=== PATIENT | female | born 1985 | race Caucasian/White ===

== ENCOUNTER → 2016-08-08 | Outpatient (RCR) ==
[2015-09-13 22:47] VITALS: BMI 23.0
--- NOTE | 2016-08-03 13:01 | RS.OPPTEV2 ---
Date of Note: 08/03/16 Visit #: 1 Date of Evaluation: 08/03/16 Payer Source: Medicaid Date of Onset/Injury/Change in Status: 06/11/15 Surgery Performed?: No Treatment Diagnosis: Neck and shoulder pain History of Condition/Mechanism of Injury:: Pt states she begain have bilateral shoulder pain and numbness 2 years ago. 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 She had a day that she shoveled asphalt all day for 2 wks and then she started having HAs and neck pain which was about 1.5 yrs ago. She took a leave of absence due to the pain she was having. She took off 06/08/2016 and will return to work ful time in August. She has been doing 2 days a wk only and states that the time off has not helped her condition. She was referred to pain management and is fearful of undergoing injections. Medical History Medical History: Hypertension, Arthritis Smoking Status: Current some day smoker Hx Home Medications: [place] 5, Bupropin XL, Naproxsyn, Tizinadine Pain Assessment - Pain Description Pain Location: Neck and shoulders mainly her occiput. Pain Description: Burning, Tightness Pain Description: Constant CRUZ to varying degrees Current Pain Intensity: 6/10 Worst Pain Intensity: 8/10 Functional Outcome Measure Neck Disability Index: 26 - G Codes & Severity Modifier G Codes & Modifier: NA Source of G Code score: NA Observation - Observation Posture: Forward Head, Rounded Shoulders General Muscle Strength: BUE strength is WNLs to testing. Minimal pain in AC joints with testing and in cervical spine. Pain reported only after testing was completed. - ROM Cervical Spine Range of Motion Limitations: Pain Comments: WFLs CROM in all planes but pain throughout the ROM - Strength Cervical Flexion: 4- Good- Shoulder ROM: Bilaterally WFL's Shoulder Muscle Strength: Bilaterally WFL's Palpation Palpation Findings: Tenderness (Neck and bilateral shoulder musculature. ), Trigger Point (Right levator scapulae), Muscle Guarding (Throughout the neck and shoulders bilaterally.) Sensation - Sensation Sensation Description: Heaviness (Throughout the UEs intermittently.) Interventions - Exercise/Activities/Manual Therapy Exercises/Activities: Manual pec strethc bilaterally in supine. Manual Therapy: A-O release performed and manual trx along with cervical glides bilaterally. Ristrictions throughout the neck at all levels on the right. - Charges Total Direct Minutes: 20 Total Treatment Time: 60 Procedures billed for this date of service:: PT Evelyne (med) & MT Assessment Assessment: Constant pain neck and shoulders with intermittent numbness of her UEs and feelings of weakness. Pain with ROM and all activity. Patient Education: Education of diagnosis, Body/Joint mechanics, Education of Plan of Care Rehab Potential: Good Short Term Goals Goal #1: Pain is intermittent. Goal to be met by: 08/18/16 Goal #2: CROM w/o pain in all planes. Goal to be met by: 08/18/16 Goal #3: Decreased pain with work by 30% at least. Goal to be met by: 08/18/16 Goal #4: Independent with basic HEP. Goal to be met by: 08/18/16 Risk Lead Goals Goal #1: Only minimal pain with work. Goal to be met by: 09/01/16 Goal #2: HAs no more than twice a wk. Goal to be met by: 09/01/16 Goal #3: NDI score 15/50 Goal to be met by: 09/01/16 Goal #4: Patient I in advanced DC HEP. Goal to be met by: 09/01/16 Plan - Treatment to be Provided Procedures: Therapeutic Exercises, Therapeutic Activity, Manual Therapy, Massage , Patient Education Modalities: Electrical Stimulation, Ultrasound/Phonophoresis, Class IV Laser, Cryotherapy, Hot Packs - Treatment Plan Frequency: 3 X week Duration: 4 weeks ORDER # VISITS AND/OR THROUGH DATE: 09/01/2016 - Treatment Code (1) Neck pain Comments: M54.2 (2) Shoulder pain, bilateral Qualifiers: Chronicity: chronic Qualified Description: Chronic pain of both shoulders Qualifier Code(s): (M25.512) Pain in left shoulder, (M25.511) Pain in right shoulder, (G89.29) Other chronic pain
--- NOTE | 2016-08-08 09:35 | RS.OPPTDN ---
Subjective Date of Note: 08/08/16 Visit #: 2 Date of Evaluation: 08/03/16 Payer Source: Medicaid Treatment Diagnosis: Neck and shoulder pain Current Subjective/complaints:: Patient says she has stiffness and pain to both shoulders/neck. She admits weakness to the UE's. She says she is scared to have injections and wants to avoid it. She says she has had estim in the past and did help a little. Reports [place] seems to be the only thing that helps right now. Pain Assessment - Pain Description Pain Location: Neck and shoulders mainly her occiput. Pain Description: Burning, Tightness Pain Description: Constant CRUZ to varying degrees Current Pain Intensity: 11/18 - Treatment Modality: US with ES (Comb.) Parameters/Method Applied: 1.5 w/cm2 x 12 mins and 8 pk volts to bilateral UT and shoulders Patient Position: Sitting - Heat/Cryotherapy Treatment: Hot Pack (both shoulders and cervical supine x 20 mins) Interventions - Exercise/Activities/Manual Therapy Exercises/Activities: Manual pec strethc bilaterally in supine., added scap retraction, shoulder shrugs for posture Manual Therapy: A-O release performed and manual trx along with cervical glides bilaterally. Ristrictions throughout the neck at all levels on the right. - Charges Total Direct Minutes: 22 Total Treatment Time: 42 Procedures billed for this date of service:: hp, us combo Assessment: Discussion of diagnosis, symptoms, injections, and treatment and possible treatment performed in PT. Patient very apprehensive about injections and should benefit from more conservative treatment. Provided Biofreeze. Patient Education: Education of diagnosis, Body/Joint mechanics, Home Exercise Program, Home Safety, Activity Modification, Education of Plan of Care Short Term Goals Goal #1: Pain is intermittent. Goal to be met by: 08/18/16 Goal #2: CROM w/o pain in all planes. Goal to be met by: 08/18/16 Goal #3: Decreased pain with work by 30% at least. Goal to be met by: 08/18/16 Goal #4: Independent with basic HEP. Goal to be met by: 08/18/16 Assisted Living Director Goals Goal #1: Only minimal pain with work. Goal to be met by: 09/01/16 Goal #2: HAs no more than twice a wk. Goal to be met by: 09/01/16 Goal #3: NDI score 15/50 Goal to be met by: 09/01/16 Goal #4: Patient I in advanced DC HEP. Goal to be met by: 09/01/16 Plan PLAN OF CARE EXPIRES ON:: 09/01/16 ORDER # VISITS AND/OR THROUGH DATE: 09/01/2016 PLAN: Continue Plan of Care
== END ==
PROVIDERS: ATTEND Pain Medicine Interventional Pain Medicine
DX: M54.2 Cervicalgia (principal); M79.1 Myalgia

== ENCOUNTER 2016-08-31 08:00 | Outpatient (RCR) ==
[2015-09-13 22:47] VITALS: BMI 23.0
--- NOTE | 2016-08-10 09:46 | RS.OPPTDN ---
Subjective Date of Note: 08/10/16 Visit #: 3 Date of Evaluation: 08/03/16 Payer Source: Medicaid Treatment Diagnosis: Neck and shoulder pain Current Subjective/complaints:: Patient says she cannot find anything that really helps her neck pain. She says that the base of the head bothers her. Reports last treatment helped at the time. Pain Assessment - Pain Description Pain Location: Neck and shoulders mainly her occiput. Pain Description: Constant CRUZ to varying degrees Current Pain Intensity: 10 - Treatment Modality: US with ES (Comb.) Parameters/Method Applied: continuous @ 1.5 w/cm2 and 8 pk volts x 12 mins Patient Position: Sitting - Heat/Cryotherapy Treatment: Hot Pack (cervical and shoulders in supine x 20) Interventions - Exercise/Activities/Manual Therapy Exercises/Activities: HEP Manual Therapy: Patient receives STM and DTM with trigger point work throughout bilateral UT and scapula. Cross stretching to both sides. Total minutes of Manual Therapy: 20 - Charges Total Direct Minutes: 32 Total Treatment Time: 52 Procedures billed for this date of service:: hp, u/jose f, MT Assessment: Patient has several trigger points particularly to the R scapula. She has mod muscle guarding especially to the R. She had relief with MT today and should benefit from further treatment adding manual or mechanical traction. Patient Education: Education of diagnosis, Body/Joint mechanics, Home Exercise Program, Home Safety, Activity Modification, Education of Plan of Care Patient demonstrates compliance with HEP?: Yes Short Term Goals Goal #1: Pain is intermittent. Goal to be met by: 08/18/16 Goal #2: CROM w/o pain in all planes. Goal to be met by: 08/18/16 Goal #3: Decreased pain with work by 30% at least. Goal to be met by: 08/18/16 Goal #4: Independent with basic HEP. Goal to be met by: 08/18/16 Laboratory Chemical Assistant Goals Goal #1: Only minimal pain with work. Goal to be met by: 09/01/16 Goal #2: HAs no more than twice a wk. Goal to be met by: 09/01/16 Goal #3: NDI score 15/50 Goal to be met by: 09/01/16 Goal #4: Patient I in advanced DC HEP. Goal to be met by: 03/24/17 Plan PLAN OF CARE EXPIRES ON:: 09/01/16 ORDER # VISITS AND/OR THROUGH DATE: 09/01/2016 PLAN: Continue Plan of Care (add mechanical or manual traction)
--- NOTE | 2016-08-14 09:53 | RS.OPPTDN ---
Subjective Date of Note: 08/14/16 Visit #: 4 Date of Evaluation: 08/03/16 Payer Source: Medicaid Treatment Diagnosis: Neck and shoulder pain Current Subjective/complaints:: Patient says that treatment feels good while here and shortly after, but says she had elevated pain last night and today. States she used heating pad and could not get relief. Reports she does not want to have injections, but is getting frustrated that pain is not consistently better. Pain Assessment - Pain Description Pain Location: Neck and shoulders mainly her occiput. Pain Description: Constant CRUZ to varying degrees Current Pain Intensity: 11/18 - Treatment Modality: Ultrasound Parameters/Method Applied: 0.4 w/cm2 continuous x 10 mins to bilateral UT. Patient Position: Sitting - Traction Treatment Method: Mechanical, Intermittent, Cervical Patient Position: Supine Amount of Force Applied: 12-13 Hold Time: 25 Rest Time: 5 Duration of treatment: 10 Traction Treatment Comment: 2 steps Interventions - Exercise/Activities/Manual Therapy Exercises/Activities: HEP review, education of mechanical traction, u/s Manual Therapy: na - Charges Total Direct Minutes: 20 with pt ed Total Treatment Time: 30 Procedures billed for this date of service:: u/s, mechanical traction Assessment: Patient continues with near constant pain to the neck and generally throughout her spine. She has an appointment to receive injections next week, but does not want to resort to it. She has temporary relief presently, but should feel more consistency with progressing traction. Traction was jose quite well with reports of relief today. Patient Education: Education of diagnosis, Body/Joint mechanics, Home Exercise Program, Home Safety, Activity Modification, Education of Plan of Care Patient demonstrates compliance with HEP?: Yes Short Term Goals Goal #1: Pain is intermittent. Goal to be met by: 08/18/16 Goal #2: CROM w/o pain in all planes. Goal to be met by: 08/18/16 Goal #3: Decreased pain with work by 30% at least. Goal to be met by: 08/18/16 Goal #4: Independent with basic HEP. Goal to be met by: 08/18/16 Dispatch Clerk Goals Goal #1: Only minimal pain with work. Goal to be met by: 09/01/16 Goal #2: HAs no more than twice a wk. Goal to be met by: 09/01/16 Goal #3: NDI score 15/50 Goal to be met by: 09/01/16 Goal #4: Patient I in advanced DC HEP. Goal to be met by: 09/01/16 Plan PLAN OF CARE EXPIRES ON:: 09/01/16 ORDER # VISITS AND/OR THROUGH DATE: 09/01/2016 PLAN: Continue Plan of Care
--- NOTE | 2016-08-15 09:54 | RS.OPPTDN ---
Subjective Date of Note: 08/15/16 Visit #: 5 Date of Evaluation: 08/03/16 Payer Source: Medicaid Treatment Diagnosis: Neck and shoulder pain Current Subjective/complaints:: Patient says that she is unsure if treatment is helping. She says it is hard to describe her pain. She says that traction did seem like it had helped during and shortly after. Pain Assessment - Pain Description Pain Location: Neck and shoulders mainly her occiput. Pain Description: Constant CRUZ to varying degrees Current Pain Intensity: 6/10 - Treatment Modality: Ultrasound Parameters/Method Applied: continuous @ 1.5 w/cm2 x 12 mins to the bilateral UT Patient Position: Sitting - Traction Treatment Method: Mechanical, Intermittent, Cervical Patient Position: Supine Amount of Force Applied: 13-14 Hold Time: 25 Rest Time: 5 Duration of treatment: 15 Traction Treatment Comment: 2 steps Interventions - Exercise/Activities/Manual Therapy Exercises/Activities: na Manual Therapy: DTM and trigger point work to bilateral UT and at base of occiput. Cross stretching to the bilateral UT. Total minutes of Manual Therapy: 15 - Charges Total Direct Minutes: 25 Total Treatment Time: 40 Procedures billed for this date of service:: u/s, mechanical traction, MT Assessment: Patient seems to ojse traction well with less pain and improved muscle guarding afterwards. Patient Education: Education of diagnosis, Body/Joint mechanics, Home Exercise Program, Home Safety, Activity Modification, Education of Plan of Care Patient demonstrates compliance with HEP?: Yes Short Term Goals Goal #1: Pain is intermittent. Goal to be met by: 08/18/16 Goal #2: CROM w/o pain in all planes. Goal to be met by: 08/18/16 Goal #3: Decreased pain with work by 30% at least. Goal to be met by: 08/18/16 Goal #4: Independent with basic HEP. Goal to be met by: 08/18/16 Impact Hammer Operator Goals Goal #1: Only minimal pain with work. Goal to be met by: 09/01/16 Goal #2: HAs no more than twice a wk. Goal to be met by: 09/01/16 Goal #3: NDI score 15/50 Goal to be met by: 09/01/16 Goal #4: Patient I in advanced DC HEP. Goal to be met by: 09/01/16 Plan PLAN OF CARE EXPIRES ON:: 09/01/16 ORDER # VISITS AND/OR THROUGH DATE: 09/01/2016 PLAN: Continue Plan of Care
--- NOTE | 2016-08-21 10:41 | RS.CXNS ---
Date of scheduled appointment: 08/21/16 Type: No Show
--- NOTE | 2016-08-22 10:30 | RS.CXNS ---
Date of scheduled appointment: 08/22/16 Type: No Show
--- NOTE | 2016-08-23 13:05 | RS.OPPTDN ---
Subjective Date of Note: 08/23/16 Date of Evaluation: 08/03/16 Payer Source: Medicaid Treatment Diagnosis: Neck and shoulder pain Current Subjective/complaints:: The cervical traction seemed to really help last time but it didn't last long. I am scheduled to see pain management for injections tomorrow and I am still fearful of getting the injections but I am going to try anyway. Pain Assessment - Pain Description Pain Location: Neck and shoulders mainly her occiput. Pain Description: Constant CRUZ to varying degrees Current Pain Intensity: 4-5/10 - Traction Treatment Method: Mechanical Patient Position: Supine Amount of Force Applied: 13 lbs Hold Time: 25 sec Rest Time: 5 sec Duration of treatment: 20 min Interventions - Exercise/Activities/Manual Therapy Exercises/Activities: Patient was began on 3-finger cervical isometrics X 5 reps each for flexion, R & L SB and extension. She was cautioned to perform resistance that will not increase her pain. Moderate VCs for head position to maintain neutral. Total minutes of Exercise: 15 Manual Therapy: Trigger point moblization to facilitate release of left levator scapulae insertion and left mid cervical paraspinal area. A-O release and lateral glides of the C-spine as well as UT stretching. Total minutes of Manual Therapy: 15 - Charges Total Direct Minutes: 50 Total Treatment Time: 50 Procedures billed for this date of service:: C-Trx, Ex & MT Assessment: Patient tolerated tx well but stil having pain even following tx. Patient Education: Education of diagnosis, Home Exercise Program, Activity Modification Short Term Goals Goal #1: Pain is intermittent. Goal to be met by: 08/18/16 Goal #2: CROM w/o pain in all planes. Goal to be met by: 08/18/16 Goal #3: Decreased pain with work by 30% at least. Goal to be met by: 08/18/16 Goal #4: Independent with basic HEP. Goal to be met by: 08/18/16 Nursing Home Goals Goal #1: Only minimal pain with work. Goal to be met by: 09/01/16 Goal #2: HAs no more than twice a wk. Goal to be met by: 09/01/16 Goal #3: NDI score 15/50 Goal to be met by: 09/01/16 Goal #4: Patient I in advanced DC HEP. Goal to be met by: 09/01/16 Plan PLAN OF CARE EXPIRES ON:: 09/01/16 ORDER # VISITS AND/OR THROUGH DATE: 09/01/2016 PLAN: Continue Plan of Care
--- NOTE | 2016-08-29 08:45 | RS.CXNS ---
Date of scheduled appointment: 08/29/16 Type: Rescheduled
--- NOTE | 2016-08-31 10:48 | RS.OPPTDN ---
Subjective Date of Note: 08/31/16 Visit #: 7 Date of Evaluation: 08/03/16 Payer Source: Medicaid Treatment Diagnosis: Neck and shoulder pain Current Subjective/complaints:: Patient says she thought treatment was helping, but now she is feeling worse. Patient says she is waiting to do injections until therapy is complete. She remains unsure of it, but also says she has to go back to work in September. Pain Assessment - Pain Description Pain Location: Neck and shoulders mainly her occiput. Current Pain Intensity: 4-5/10 - Traction Treatment Method: Mechanical, Intermittent, Cervical Patient Position: Supine Amount of Force Applied: 14-15 Hold Time: 25 Rest Time: 5 Duration of treatment: 15 Traction Treatment Comment: 2 steps Interventions - Exercise/Activities/Manual Therapy Exercises/Activities: Passive stretching SB and rotation. Isometric neck retraction, isometric SB 2x5. Shoulder shrugs. Instructed in red tband bilateral shoulder ER and retraction. Total minutes of Exercise: 8 Manual Therapy: Trigger point moblization and DTM to bilateral UT and cervical paraspinals. Cross stretching. Total minutes of Manual Therapy: 15 - Charges Total Direct Minutes: 23 Total Treatment Time: 48 Procedures billed for this date of service:: MT, EX, traction (mechanical) Assessment: Patient has not been seen since 08/23/16 and has felt symptoms worsening. She demo mild muscle guarding to the L UT and R scapula presenting with 2 small trigger points, which did decrease with MT. No difficulty shown with passive stretching. Traction seemed to be jose well after adjusting to straight pull instead of some flexion involved. Patient Education: Education of diagnosis, Body/Joint mechanics, Home Exercise Program, Home Safety, Activity Modification, Education of Plan of Care Patient demonstrates compliance with HEP?: Yes Short Term Goals Goal #1: Pain is intermittent. Goal to be met by: 08/18/16 Progress towards Goal:: No Change Goal #2: CROM w/o pain in all planes. Goal to be met by: 08/18/16 Progress towards Goal:: Progressing Goal #3: Decreased pain with work by 30% at least. Goal to be met by: 08/18/16 Comments:: Patient not returning until September Goal #4: Independent with basic HEP. Goal to be met by: 08/18/16 Progress towards Goal:: Progressing Pen[facility]iary Goals Goal #1: Only minimal pain with work. Goal to be met by: 09/01/16 Goal #2: HAs no more than twice a wk. Goal to be met by: 09/01/16 Goal #3: NDI score 15/50 Goal to be met by: 09/01/16 Goal #4: Patient I in advanced DC HEP. Goal to be met by: 09/01/16 Plan PLAN OF CARE EXPIRES ON:: 09/01/16 ORDER # VISITS AND/OR THROUGH DATE: 09/01/2016 PLAN: Progress Exercises (Patient to continue x 1 more visit per order/insurance )
--- NOTE | 2016-10-12 14:25 | RS.QUICKDC ---
Discharge from PT Date of Discharge: 10/12/16 Number of Visits: 7 Reason for Discharge: Patient had rescheduled her final appt and did not show. All alloted appts per insurance and order had been at time of last appt. She received treatment of moist heat, u/s, mechanical traction, and MT/ HEP. She admitted mild improvement with pain and muscle guarding. She had a pending appt for injections which she was postponing until after completion of PT.
== END 2016-09-08 ==
PROVIDERS: ATTEND Pain Medicine Interventional Pain Medicine
DX: M54.2 Cervicalgia (principal); M79.1 Myalgia; M25.511 Pain in right shoulder; M25.512 Pain in left shoulder

== ENCOUNTER 2017-01-23 13:12 | Outpatient (CLI) ==
[2015-09-13 22:47] VITALS: BMI 23.0
--- NOTE | 2017-01-23 15:23 | MRI ---
EXAM: MRI cervical spine without IV contrast. DATE: 01/23/2017. HISTORY: Cervical disc degeneration. TECHNIQUE: Sagittal and axial T1W and T2W sequences of the cervical spine along with sagittal IR an d coronal T2W sequences were obtained using 1.2 Emy magnet. No IV contrast. COMPARISON: C-spine series 01 April 2015. MRI C-spine 03/25/2015. FINDINGS: Mild rightward curvature the mid cervical spine is noted. No acute c-spine fracture, sub luxation, osseous malignancy, or jumped facet is demonstrated. Cervical vertebra are normal in heig ht. Bone marrow signal is normal. Intervertebral discs are normal in height and signal. Cervical and upper thoracic spinal cord reveals no syrinx, cord edema, myelomalacia, or neoplasm. Visible brainstem and cerebellum are unremarkable. Circumferential mucosal thickening is present in the sphenoid sinus, along with a small air-fluid level. Mastoid air cells are unremarkable. Trach ea, larynx, epiglottis appear normal. No thyroid, submandibular, or parotid gland neoplasm is ident ified. Small cervical lymph nodes are present without associated mass or lymphadenopathy. No apica l lung mass, pneumonia, or pleural effusion is detected. Segmental analysis: C2-3: Normal. C3-4: Normal. C4-5: Normal. C5-6: Minor posterior disc bulge (1.2 mm AP) does not contact the cord. Canal is 14 mm AP. Mild b ilateral foraminal stenoses are due to uncinate hypertrophy. C6-7: Minimal posterior disc bulge (1 mm AP) does not contact the cord. Canal is 13.8 mm AP. Each foramen is patent. C7-T1: Normal. T1-2: Normal. IMPRESSIONS: 1. Minor disc bulges at C5-6 and C6-7. No cord compression or central stenosis. 2. Mild bilateral foraminal stenoses at C5-6. 3. Sphenoid sinus mild mucosal disease .
== END 2017-01-23 13:13 | disposition home or self-care (01) ==
LOC: RAD 13:12
PROVIDERS: ATTEND Pain Medicine Interventional Pain Medicine
DX: M50.322 Other cervical disc degeneration at C5-C6 level (principal); M50.323 Other cervical disc degeneration at C6-C7 level; M47.812 Spondylosis without myelopathy or radiculopathy, cervical region

== ENCOUNTER 2017-08-03 10:09 | Outpatient (CLI) ==
[2015-09-13 22:47] VITALS: BMI 23.0
--- NOTE | 2017-08-03 17:18 | MRI ---
EXAM: Thoracic spine MRI without contrast. HISTORY: Degenerative spondylosis. Pain. COMPARISON: Cervical spine MRI 01/23/[address] 09/13/2015. TECHNIQUE: Multiplanar, multisequence MR images were acquired of the thoracic spine without contrast . FINDINGS: 12 rib-bearing thoracic vertebra are present. There is minor cervicothoracic levoscoliosi s centered at T3-4. The thoracic vertebra are normal in height and intrinsic bone marrow signal. Can al diameter is developmentally normal. The thoracic cord has normal signal intensity and ends at L1- 2. There are no paravertebral masses. The partially visualized liver, spleen and upper poles of both ki dneys are unremarkable. T1-2: The intervertebral disc is normal. T2-3: There is a minor spondylotic disc bulge that is asymmetric to the right which narrows the righ t lateral recess. Neural foramina are patent. T3-4 to T12-L1: The intervertebral discs are normal. Neural foramina are patent. IMPRESSION: 1. No thoracic disc herniations, central canal stenosis or significant foraminal stenosis. 2. Minor dorsal spondylotic disc bulge T2-3 that is asymmetric to the right and minor cervicothoraci c levoscoliosis centered at T3-4.
== END 2017-08-03 10:10 | disposition home or self-care (01) ==
LOC: RAD 10:09
PROVIDERS: ATTEND Pain Medicine Interventional Pain Medicine
DX: M51.04 Intervertebral disc disorders with myelopathy, thoracic region (principal); M54.6 Pain in thoracic spine

== ENCOUNTER → 2017-08-08 | Outpatient (RCR) ==
[2015-09-13 22:47] VITALS: BMI 23.0
--- NOTE | 2017-07-25 09:02 | RS.OPPTEV2 ---
Date of Note: 07/24/17 Visit #: 1 Date of Evaluation: 07/24/17 Payer Source: Medicaid Surgery Performed?: No Treatment Diagnosis: prolapsed cervical intervertebral disc History of Condition/Mechanism of Injury:: pt reports having long history of neck and shld pain but increased approx 2 weeks ago. Prior Level of Function.....Patient was independent with: ADL's, Self Care, Work /Vocation, Ambulation/Mobility, Community Integration/Access Level of Function: pt works at her own business, independent with ADL's and amb. Functional Limitations: Sleep, Reaching, Pushing, Pulling, Lifting Current Subjective/complaints:: pt states she has pain in cervical spine as well as medial scapular area and upper traps. Treatment Side (optional): Bilateral *Precautions: n/a Medical History Medical History: Hypertension, Arthritis Medical History Comments:: migraine, obsessive compulsive disorder, anxiety disorder, depression, chronic pain Surgical History Comments:: breast implants Smoking Status: Current some day smoker Hx Home Medications: [place] 5, Bupropin XL,zantac, imitrex, florinal, methocarb Patient's Goals: decrease pain Pain Assessment - Pain Description Pain Location: cervical spine, medial scapula, and upper trap Pain Description: Burning, Sharp Current Pain Intensity: 6/10 Worst Pain Intensity: 8/10 Other Comments regarding Pain:: pt reports "almost constant headache" Functional Outcome Measure Neck Disability Index: 32 - G Codes & Severity Modifier G Codes & Modifier: n/a Source of G Code score: n/a Observation - Observation Inspection: R shld elevated Posture: Forward Head, Rounded Shoulders Handedness: Right Gait - Gait Pattern General Gait Pattern Observation: No Deviations/Normal General Range of Motion: RUE shld flex WFL's with pain , pt also reports stiffness. otherwise WFL's. LUE WFL's. BLE WFL's Muscle Strength: RUE shld flex 4/5, elbow flex/ext 5/5. LUE 5/5. BLE 5/5 - ROM Cervical Spine Range of Motion Limitations: Soft Tissue Tightness, Muscle Weakness, Pain Comments: ROM WFL's with pain with flex and L lat flex - Strength Cervical Extension: 4 Good Cervical Flexion: 4 Good Cervical Lateral Flexion: 4- Good- Cervical Rotation: 4- Good- Comments: pt with some relief of radicular symptoms with cervical distraction - Special Tests Foraminal Compression: Negative Left, Negative Right Palpation Palpation Findings: Tenderness, Trigger Point, Muscle Guarding Comments:: tenderness in cervical paraspinals, upper trap and medial scapular area. Trigger points noted in medial scapular area and L upper trap Sensation - Sensation Right Upper Extremity: Intact/Normal Left Upper Extremity: Intact/Normal Right Lower Extremity: Intact/Normal Left Lower Extremity: Intact/Normal Balance - Sitting Balance Static Sitting Balance: Normal Dynamic Sitting Balance: Normal - Standing Balance Static Standing Balance: Normal Dynamic Standing Balance: Normal - Treatment Modality: Electrical Stim Unattended Parameters/Method Applied: IFC x 20 mins at 10ma Treatment Area: L cervical/upper trap area Patient Position: Prone - Heat/Cryotherapy Treatment: Cryotherapy Comments:: cervical Interventions - Exercise/Activities/Manual Therapy Exercises/Activities: pt performed cervical retraction, scapular retraction, upper trap stretch B, shld shrugs Manual Therapy: n/a HOME EXERCISE PROGRAM: pt given written HEP including cervical retraction, scapular retraction, shld shrugs, upper trap stretch - Charges Timed Code Treatment Minutes: 50 Total Treatment Time: 60 Procedures billed for this date of service:: eval low, estim, cold pack EVALUATION COMPLEXITY LEVEL EVALUATION COMPLEXITY LEVEL: HISTORY: Low, EXAM OF BODY SYSTEMS: Low (pain, ROM , ), CLINICAL PRESENTATION: Medium, CLINICAL DECISION MAKING: Low Assessment Assessment: pt presents with cervical pain radiating in B shlds. pt with increased muscle tightness cervical paraspinal muscles, upper trap and medial scapular. Patient Education: Home Exercise Program, Activity Modification, Education of Plan of Care Rehab Potential: Good Short Term Goals Goal #1: Decrease pain <5/10 with activity Goal to be met by: 08/07/17 Goal #2: Increase cervical ROM with decreased pain Goal to be met by: 08/07/17 Goal #3: . Goal #4: . Correction Goals Goal #1: pt report pain <4/10 with activity Goal to be met by: 08/17/17 Goal #2: pt report decreased headaches Goal to be met by: 08/17/17 Goal #3: neck disability index score 20 Goal to be met by: 08/17/17 Goal #4: pt is independent with HEP Goal to be met by: 08/17/17 Plan - Treatment to be Provided Procedures: Therapeutic Exercises, Therapeutic Activity, Manual Therapy, Massage , Patient Education Modalities: Electrical Stimulation, Ultrasound/Phonophoresis, Class IV Laser, Cryotherapy, Hot Packs, Mechanical Traction - Treatment Plan Frequency: 2 X week Duration: 4 weeks ORDER # VISITS AND/OR THROUGH DATE: 08/17/17 - Treatment Code (1) Prolapsed cervical intervertebral disc Code(s): M50.20 - OTHER CERVICAL DISC DISPLACEMENT, UNSP CERVICAL REGION (2) Neck pain Code(s): M54.2 - CERVICALGIA
--- NOTE | 2017-07-30 10:58 | RS.CXNS ---
Date of scheduled appointment: 07/30/17 Type: No Show ([facility] marked as no-show. [facility] Appointment rescheduled.)
--- NOTE | 2017-08-01 16:06 | RS.CSNOTE ---
PT Case Note Date of Note: 08/01/17 Title of document: Hold Note: Patient presents to department for appointment with reports she has just been to Pain Management and has been ordered to have an MRI due to physicians concern over symptoms in neck and hands. She states the physician is concerned there is more going on in her neck/upper back. Upon discussion and consultation with evaluating PT, patient is put on hold pending MRI. PT will discuss results and indication for continuation of treatment.
--- NOTE | 2017-08-06 16:17 | RS.CSNOTE ---
PT Case Note Date of Note: 08/06/17 Note: Patient had MRI 08/03/17. Reviewed report and called Roxana Bales NP to request OK to resume PT. Received return call and they stated it was Ok to resume PT. Called pt and scheduled appt for 08/08/17 at 1100am.
--- NOTE | 2017-08-08 13:47 | RS.OPPTDN ---
Subjective Date of Note: 08/08/17 Visit #: 2 Date of Evaluation: 07/24/17 Payer Source: Medicaid Treatment Diagnosis: prolapsed cervical intervertebral disc Current Subjective/complaints:: Patient says she is still hurting badly to the neck and upper back. Lucy says she believes it is even making her low back hurt. She is hurting on the R side of her neck more than the L. She says she is concerned that everyone is "minimizing" her imaging results and c/o's. She says she feels her neck should be in "worse shape on the MRI" than what it reflects. 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 States she sleeps L sidelying. *Precautions: n/a Pain Assessment - Pain Description Pain Location: upper back, UT R more than L, base of occiput bilaterally and low back - Treatment Modality: Ultrasound Parameters/Method Applied: continuous @ 1.5 w/cm2 bilaterally, but with focus to the R UT and cervical paraspinals Patient Position: Sitting - Heat/Cryotherapy Treatment: Hot Pack (cervical and wrapped around the R shoulder x 15 mins. She requests prone position) - Traction Treatment Method: Mechanical, Intermittent, Cervical Patient Position: Supine Amount of Force Applied: 12-13 Hold Time: 25 Rest Time: 5 Duration of treatment: 12 Interventions - Exercise/Activities/Manual Therapy Exercises/Activities: Reviewed HEP, postural and body mechanics, discussed previous imaging and treatment and its benefits performed today. Much discussion over diagnosis and POC. Total minutes of Exercise: 0 ex Manual Therapy: n/a HOME EXERCISE PROGRAM: pt given written HEP including cervical retraction, scapular retraction, shld shrugs, upper trap stretch - Other Services Treatment Details: Pt has a TENS unit and has been using it for pain along with Voltaren cream which fully relieves, but very temporary ~10 mins. - Charges Timed Code Treatment Minutes: 30 Total Treatment Time: 57 Procedures billed for this date of service:: hp, mechanical traction, u/s Assessment: Patient experiencing pain to the base of the occiput, bilateral UT ( although more so to the R), upper cervical paraspinals and also low back pain. She demo mild tenderness to minimal palpation along the cspine and along the R medial scapula. She did verbalize improved pain at the end of session today demo increased ability to perform Cspine ROM actively. She was encouraged to perform and utilize proper postural mechanics and the importance of strengthening posturally. She does present with increased tone to the R UT than L and heightened R scapula compared to L. She should improve with further consistent modalities such as u/s and mechanical traction with stretching/ postural strengthening to improve pain and alignment. Patient Education: Education of diagnosis, Home Exercise Program, Education of Plan of Care Patient demonstrates compliance with HEP?: Yes Short Term Goals Goal #1: Decrease pain <5/10 with activity Goal to be met by: 08/07/17 Goal #2: Increase cervical ROM with decreased pain Goal to be met by: 08/07/17 Goal #3: . Goal #4: . Care Giver Goals Goal #1: pt report pain <4/10 with activity Goal to be met by: 08/17/17 Goal #2: pt report decreased headaches Goal to be met by: 08/17/17 Goal #3: neck disability index score 20 Goal to be met by: 08/17/17 Goal #4: pt is independent with HEP Goal to be met by: 08/17/17 Plan PLAN OF CARE EXPIRES ON:: 08/17/17 ORDER # VISITS AND/OR THROUGH DATE: 08/17/17 PLAN: I tried to get patient in another day this week, but she requested next week. She is to continue for modalties and traction until August 17 per LTG dates.
== END ==
PROVIDERS: ATTEND Nurse Practitioner Family
DX: M50.20 Other cervical disc displacement, unspecified cervical region (principal)

== ENCOUNTER 2017-12-04 10:28 | Emergency (ER) ==
[2017-12-04 10:34] VITALS: BP 150/82; TEMP 98.4; BMI 20.5
--- NOTE | 2017-12-04 11:40 | ED.PDOC ---
General ED Provider: Dr. FIDEL DAMON Chief Complaint: Headache Stated Complaint: Headache, Sore throat, ear ache, Shortness of breath, chest palpitations and chest tightness. Onset for past several days.HX of Migraine Headaches. 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 Has dry nonproductive cough.Denies dizziness. Notes pustules on throat and tonsils. Chest aching and palpitaions. Noted to be drinking [employer] (I needed this today) Time Seen by Physician: 11:30 Mode of Arrival: Walk-In Information Source: Patient Exam Limitations: No limitations Primary Care Provider: TIFFANIE RICH Nursing and Triage Documentation Reviewed and Agree: Yes Does patient meet sepsis criteria?: No If yes, has appropriate treatment been initiated?: No System Inflammatory Response Syndrome: Not Applicable Sepsis Protocol: For patient's 13 years and over: Temp is 96.8 and below OR 101 and greater Pulse >90 BPM Resp >20/minute Acutely Altered Mental Status Are patient's symptoms suggestive of a new infection, such as: -Pneumonia -Skin, Soft Tissue -Endocarditis -UTI -Bone, Joint Infection -Implantable Device -Acute Abdominal Infection -Wound Infection -Meningitis -Blood Stream Catheter Infection -Unknown Neurological Complaint Exam - Headache Complaint/Exam Onset: Sudden (Today) Symptoms Are: Still present Timing: Intermittent Episodes Lasting: Hours Worst Headache Ever: No Initial Severity: Moderate Current Severity: None Location: Diffuse Character: Reports: Dull, Typical headache Aggravating: Reports: Position change, Bright lights Alleviating: Reports: None Associated Signs and Symptoms: Reports: Dizziness, Seizure, Nausea, Sinus pressure, Neck stiffness. Denies: Decreased LOC, Visual changes Related History: Reports: Similar episode Related Surgical History: Reports: None SAH Risk Factors: Reports: None Meningitis Risk Factors: Reports: None SDH Risk Factors: Reports: None Temporal Arteritis Risk Factors: Reports: None Normal Head CT Within Last 12 Months: No Fundoscopic Exam: Present: Normal Findings Sinus Tenderness: Present: Maxillary TMJ Tenderness: Present: None Glascow Coma Scale (see protocol): 15 Meningeal Signs Positive: No Pain on Passive Flexion-Positive Kernig's: No ROM Limited In: No Limitiations Focal Weakness: Present: None Focal Sensory Loss: Present: None Gait: Normal Nystagmus Present: No Gag Reflex Present: Yes [id number]: Normal Findings Romberg Test Positive: No Babinski Sign: Negative Right, Negative Left Differential Diagnoses: Migraine, Sinus Headache, Tension Headache, Viral Syndrome Review of Systems - Review Of Systems Constitutional: Reports: Chills, Malaise Eyes: Reports: No symptoms Ears, Nose, Mouth, Throat: Reports: No symptoms, Throat pain Respiratory: Reports: Cough, Short of air, Wheezing Cardiac: Reports: No symptoms GI: Reports: No symptoms : Reports: No symptoms Musculoskeletal: Reports: Neck pain Skin: Reports: No symptoms Neurological: Reports: Anxiety, Headache Hematologic/Lymphatic: Reports: No symptoms All Other Systems: Reviewed and Negative Past Medical History - Past Medical History Previously Healthy: Yes Endocrine: Reports: None Cardiovascular: Reports: None Respiratory: Reports: None Hematological: Reports: None Gastrointestinal: Reports: None Genitourinary: Reports: None Neuro/Psych: Reports: None Musculoskeletal: Reports: None Cancer: Reports: None Last Menstrual Period: 3 weeks ago - Surgical History General Surgical History: Reports: Unknown - Family History Family History: Reports: Unknown - Social History Smoking Status: Current every day smoker, Light tobacco smoker Hx Substance Use: Yes (ALCOHOL IN THE PAST) Alcohol Screening: None Physical Exam - Physical Exam Appearance: Well-appearing, No pain distress, Well-nourished, Thin Ill-appearing: Mild Pain Distress: Mild Eyes: GIO, EOMI, Conjunctiva clear ENT: Ears normal (Lt TM erythrematous), Nose normal, Oropharynx normal Respiratory: Airway patent, Breath sounds clear, Breath sounds equal, Respirations nonlabored Cardiovascular: RRR, Pulses normal, No rub, No murmur GI/: Soft, Nontender, No masses, Bowel sounds normal, No Organomegaly Musculoskeletal: Normal strength, ROM intact, No edema, No calf tenderness Skin: Warm, Dry, Normal color Neurological: Sensation intact, Motor intact, Reflexes intact, Cranial nerves intact, Alert, Oriented Psychiatric: Affect appropriate, Mood appropriate Critical Care Note - Critical Care Note Total Time (mins): 0 Course - Course Hematology/Chemistry: 12/04/17 10:45 12/04/17 12:25 Orders, Labs, Meds: Lab Review 12/04/17 12/04/17 12/04/17 10:45 10:45 10:45 WBC 7.94 RBC 4.38 Hgb 14.4 Hct 41.6 MCV 95.0 MCH 32.9 H MCHC 34.6 RDW Coeff of César 12.2 Plt Count 182 Immature Gran % (Auto) 0.1 Neut % (Auto) 71.6 Lymph % (Auto) 19.3 [place] % (Auto) 5.8 Eos % (Auto) 2.9 Baso % (Auto) 0.3 Immature Gran # (Auto) 0.0 Neut # (Auto) 5.7 Lymph # (Auto) 1.5 [place] # (Auto) 0.5 Eos # (Auto) 0.2 Baso # (Auto) 0.0 ESR 2 Sodium Potassium Chloride Carbon Dioxide Anion Gap BUN Creatinine Estimated GFR (MDRD) BUN/Creatinine Ratio Glucose Calcium Total Bilirubin AST ALT Alkaline Phosphatase Total Protein Albumin Globulin Albumin/Globulin Ratio Serum , Qual Negative Urine Color Yellow Urine Clarity Clear Urine pH 7.0 Ur Specific [place] 1.025 Urine Protein Negative Urine Glucose (UA) 1+ Urine Ketones Negative Urine Blood 2+ Urine Nitrite Negative Urine Bilirubin Negative Urine Urobilinogen 0.2 Ur Leukocyte Esterase Negative Urine Microscopic RBC 5-10 Urine Microscopic WBC 0-2 Ur Squamous Epith Cells 5-10 Amorphous Sediment 1+ Urine Bacteria Trace Urine Opiates Screen Ur Oxycodone Screen Urine Methadone Screen Ur Propoxyphene Screen Ur Barbiturates Screen U Tricyclic Antidepress Ur Phencyclidine Scrn Ur Amphetamine Screen U Methamphetamines Scrn U Benzodiazepines Scrn Urine Cocaine Screen U Cannabinoids Screen Infectious [place] Assay Negative 12/04/17 12/04/17 10:45 12:25 WBC RBC Hgb Hct MCV MCH MCHC RDW Coeff of [place] Plt Count Immature Gran % (Auto) Neut % (Auto) Lymph % (Auto) [place] % (Auto) Eos % (Auto) Baso % (Auto) Immature Gran # (Auto) Neut # (Auto) Lymph # (Auto) [place] # (Auto) Eos # (Auto) Baso # (Auto) ESR Sodium 139 Potassium 4.1 Chloride 107 Carbon Dioxide 25 Anion Gap 11.1 BUN 7 Creatinine 0.60 Estimated GFR (MDRD) 114.00 BUN/Creatinine Ratio 11.66 Glucose 99 Calcium 9.1 Total Bilirubin 0.3 AST 12 L ALT 12 Alkaline Phosphatase 53 Total Protein 6.4 Albumin 3.7 Globulin 2.7 Albumin/Globulin Ratio 1.37 Serum , Qual Urine Color Urine Clarity Urine pH Ur Specific [place] Urine Protein Urine Glucose (UA) Urine Ketones Urine Blood Urine Nitrite Urine Bilirubin Urine Urobilinogen Ur Leukocyte Esterase Urine Microscopic RBC Urine Microscopic WBC Ur Squamous Epith Cells Amorphous Sediment Urine Bacteria Urine Opiates Screen Negative Ur Oxycodone Screen Negative Urine Methadone Screen Negative Ur Propoxyphene Screen Negative Ur Barbiturates Screen Negative U Tricyclic Antidepress Negative Ur Phencyclidine Scrn Negative Ur Amphetamine Screen Negative U Methamphetamines Scrn Negative U Benzodiazepines Scrn Negative Urine Cocaine Screen Negative U Cannabinoids Screen Negative Infectious [place] Assay Orders Category Date Time Status EKG-(ED ONLY) Stat CARDIO 12/04/17 12:02 Completed CBC W/ AUTO DIFF Stat LAB 12/04/17 10:45 Completed CMP [COMPREHENSIVE METABOLIC PANEL] Stat LAB 12/04/17 12:25 Completed ESR Stat LAB 12/04/17 10:45 Completed HCG QUALITATIVE [SERUM ] Stat LAB 12/04/17 10:45 Completed MONONUCLOSIS SCREEN Stat LAB 12/04/17 10:45 Completed RAPID STREP SCREEN [MOLECULAR GROUP A STREP] Stat LAB 12/04/17 10:45 Completed UA [URINALYSIS C & S IF INDICATED] Stat LAB 12/04/17 10:45 Completed URINE DRUG SCREEN (RAPID FOR ED) [DRUG SCREEN, URINE, LAB 12/04/17 10:45 Completed RAPID] Stat Sumatriptan Succinate [Imitrex] MEDS 12/04/17 12:44 Discontinued 50 mg PO ONCE STA CHEST, 2 VIEWS PA & LAT Stat RADS 12/04/17 12:[address] HEAD W/O CONTRAST Stat RADS 12/04/17 12:[address] SINUSES W/O CONTRAST Stat RADS 12/04/17 12:05 Completed Medications Discontinued Medications Generic Name Dose Route Start Last Admin Trade Name Milla PRN Reason Stop Dose Admin Sumatriptan Succinate 50 mg 12/04/17 12:44 12/04/17 13:05 Imitrex PO 12/04/17 12:45 50 mg ONCE STA Administration Vital Signs: Temp Pulse Resp BP Pulse Ox 12/04/17 10:28 98.4 F 85 20 150/82 H 98 Departure - Departure Time of Disposition: 13:00 Disposition: HOME SELF-CARE Discharge Problem: Migraine, Pansinusitis Instructions: Sumatriptan (By mouth), Sinusitis (ED), Migraine Headache (ED) Condition: Good Pt referred to PMD for follow-up: Yes IPMP verified?: No Additional Instructions: Take prescribed meds as directed/ Finish meds for sinus infectin Follow up PCP in 1 wk Prescriptions: Sumatriptan Succinate [Imitrex] 50 mg PO TID PRN #10 tablet MDD 3 PRN Reason: Migraine Allergies/Adverse Reactions: Allergies codeine Adverse Reaction (Verified 12/04/17 10:37) Itching Home Medications: Ambulatory Orders Bupropion HCl [Bupropion Xl] 300 mg PO DAILY 09/13/15 Clonazepam [Klonopin] 0.5 mg PO PRN PRN 09/13/15 Diclofenac Sodium 75 mg PO DAILY 12/04/17 Diclofenac Sodium [Voltaren 1% Gel] 2 gm TP DAILY 12/04/17 Hydrocodone Bit/Acetaminophen [[place] 5-325] 1 each PO BID 12/04/17 Sumatriptan Succinate [Imitrex] 50 mg PO PRN PRN 12/04/17 Sumatriptan Succinate [Imitrex] 50 mg PO TID PRN #10 tablet MDD 3 12/04/17
[2017-12-04] MEDS ORDERED: IMITREX PO STA (12:44)
--- NOTE | 2017-12-04 13:28 | DI ---
EXAM: PA and lateral views of the chest HISTORY: Cough. COMPARISON: CT chest 09/13/2015 FINDINGS: The cardiomediastinal silhouette is normal. There is no pneumothorax or pleural effusion. There is no consolidation, nodule or mass. The osseous structures are unremarkable. IMPRESSION: No acute cardiopulmonary process
--- NOTE | 2017-12-04 13:53 | CT ---
EXAM: CT Head HISTORY: Headache COMPARISON: 03/21/2015 TECHNIQUE: CT head performed without contrast FINDINGS: There is no mass effect, midline shift, or intracranial hemmorhage. Nagy white differenti ation is preserved. There is no extra-axial collection. The ventricles, sulci, and basal cisterns a re patent and symmetric. There is no depressed calvarial fracture. The mastoid air cells are clear. The visualized paranasal sinuses are clear. IMPRESSION: No acute intracranial abnormality.
--- NOTE | 2017-12-04 13:53 | CT ---
EXAM: CT PARANASAL SINUSES HISTORY: Sinus pressure and pain TECHNIQUE: CT paranasal sinuses without contrast. Detailed axial sections. Coronal and sagittal re formations. FINDINGS: No comparison. Frontal sinuses: Small volume, clear. Ethmoid sinuses: Clear, however there is a focal 7.3 mm length of medial invagination of the right o rbital wall/ fat to a depth of 3.9 mm into the ethmoid space without definite wall discontinuity. Qu estionable etiology and clinical significance. Possibly congenital. Sphenoid sinuses: Mild mucosal thickening in the dependent portions of the right sinus. Left sinus clear. Maxillary sinuses: Mild bibasilar mucosal thickening. General: No sinus fluid. Nasal septum is mildly deviated toward the left at its midportion. Nasal turbinates are within normal limits. No definite postop changes are seen, correlate with history. M astoid processes are aerated. IMPRESSION: Evidence of mild chronic paranasal sinusitis. Mild nasal septal deviation. Other finding s as described.
[2017-12-04] MEDS ORDERED: PROTONIX PO STA (14:36)
[2017-12-04] MEDS ORDERED: GI COCKTAIL PO STA (14:36)
== END 2017-12-04 15:15 | disposition home or self-care (01) ==
LOC: ED 10:28
DX: G43.909 Migraine, unspecified, not intractable, without status migrainosus (principal); J32.4 Chronic pansinusitis; R06.02 Shortness of breath; R00.2 Palpitations; R07.9 Chest pain, unspecified; F17.210 Nicotine dependence, cigarettes, uncomplicated; R10.13 Epigastric pain
CPT/HCPCS: 36415; 80053; 80306; 81001; 84703; 85025; 85651; 86308; 87651; 93005; 93010; 99283

== ENCOUNTER 2018-01-12 09:36 | Emergency (ER) ==
[2018-01-12 09:44] VITALS: BP 126/87; TEMP 97.8; BMI 19.7
--- NOTE | 2018-01-12 10:02 | ED.PDOC ---
General ED Provider: Dr. FIDEL DAMON Chief Complaint: Bite Stated Complaint: Possible spider bite-posterior proximal lt thigh. First noted 3 days ago. States last night took a staight pin and stuck in to lesion and that yellowish fluid came out. Admits to fever and chills although is currently afebrile. Time Seen by Physician: 09:45 Mode of Arrival: Walk-In Information Source: Patient Exam Limitations: No limitations Primary Care Provider: TIFFANIE RICH Nursing and Triage Documentation Reviewed and Agree: Yes Does patient meet sepsis criteria?: No System Inflammatory Response Syndrome: Not Applicable Sepsis Protocol: For patient's 13 years and over: Temp is 96.8 and below OR 101 and greater Pulse >90 BPM Resp >20/minute Acutely Altered Mental Status Are patient's symptoms suggestive of a new infection, such as: -Pneumonia -Skin, Soft Tissue -Endocarditis -UTI -Bone, Joint Infection -Implantable Device -Acute Abdominal Infection -Wound Infection -Meningitis -Blood Stream Catheter Infection -Unknown Skin Complaint Exam - Skin/Soft Tissue Complaint/Exam Symptoms Are: Still present Timing: Constant Initial Severity: Moderate Current Severity: Moderate Location: Lt Posterior Thigh Character: Reports: Redness, Swelling, Painful (localized area or circular erythrema 3X 5 cm surrounding the site of lesion(1/2cm), very tender. Patient squeezed area and produced yellow cheesy material which was cultured.) Aggravating: Reports: Touch Alleviating: Reports: None Related History: Denies: Similar episode Related Surgical History: Reports: None Recent Exposure to Others w/Similar Symptoms: No Skin Findings: Present: Erythema, Induration. Absent: Fluctuant mass, Lymphadenopathy, Lymphangitic streaking, Skin lesion, Weeping skin, Wet ulceration, Dry ulceration, Pustules, Other Differential Diagnoses: Cellulitis, MRSA, Other (Spider Bite) Review of Systems - Review Of Systems Constitutional: Reports: Chills, Fever. Denies: Malaise, Weakness, Sweats, Loss of appetite Eyes: Reports: No symptoms Ears, Nose, Mouth, Throat: Reports: No symptoms Respiratory: Reports: No symptoms Cardiac: Reports: No symptoms GI: Reports: No symptoms : Reports: No symptoms Musculoskeletal: Reports: No symptoms Skin: Reports: Lesions, Other (Area or Lesion lt posterior thigh as described) Neurological: Reports: No symptoms Endocrine: Reports: No symptoms Hematologic/Lymphatic: Reports: No symptoms All Other Systems: Reviewed and Negative Past Medical History - Past Medical History Previously Healthy: Yes Endocrine: Reports: None Cardiovascular: Reports: None Respiratory: Reports: None Hematological: Reports: None Gastrointestinal: Reports: None Genitourinary: Reports: None Neuro/Psych: Reports: None Musculoskeletal: Reports: None Cancer: Reports: None Last Menstrual Period: on - Surgical History General Surgical History: Reports: Unknown - Family History Family History: Reports: Unknown - Social History Smoking Status: Current some day smoker Hx Substance Use: Yes Alcohol Screening: None - Immunizations Tetanus Shot up to Date: No Physical Exam - Physical Exam Appearance: Well-appearing, Well-nourished Ill-appearing: Mild Pain Distress: Mild Eyes: GIO, EOMI, Conjunctiva clear ENT: Ears normal, Nose normal, Oropharynx normal Respiratory: Airway patent, Breath sounds clear, Breath sounds equal, Respirations nonlabored Cardiovascular: RRR, Pulses normal, No rub, No murmur GI/: Soft, Nontender, No masses, Bowel sounds normal, No Organomegaly Musculoskeletal: Normal strength, ROM intact, No edema, No calf tenderness Skin: Warm (Tenderness Lt Posterior thigh as described at site of lesion. No drainage noted. Very tender to touch. Pressure applied -no drainage. Patient herself applied squeezing pressure with cloudy yellow /serous drainage. No localized area of fluctuance suitable for I&D at this time), Dry, Normal color Neurological: Sensation intact, Motor intact, Reflexes intact, Cranial nerves intact, Alert, Oriented Psychiatric: Affect appropriate, Mood appropriate Critical Care Note - Critical Care Note Total Time (mins): 0 Course - Course Hematology/Chemistry: 01/12/18 10:30 01/12/18 10:30 Orders, Labs, Meds: Lab Review 01/12/18 01/12/18 01/12/18 10:00 10:00 10:30 WBC 10.96 H RBC 4.08 L Hgb 13.3 Hct 38.6 MCV 94.6 MCH 32.6 H MCHC 34.5 RDW Coeff of [place] 12.4 Plt Count 209 Immature Gran % (Auto) 0.3 Neut % (Auto) 80.1 Lymph % (Auto) 12.4 [place] % (Auto) 5.4 Eos % (Auto) 1.5 Baso % (Auto) 0.3 Immature Gran # (Auto) 0.0 Neut # (Auto) 8.8 H Lymph # (Auto) 1.4 [place] # (Auto) 0.6 Eos # (Auto) 0.2 Baso # (Auto) 0.0 ESR Sodium Potassium Chloride Carbon Dioxide Anion Gap BUN Creatinine Estimated GFR (MDRD) BUN/Creatinine Ratio Glucose Lactic Acid Calcium Total Bilirubin AST ALT Alkaline Phosphatase Total Protein Albumin Globulin Albumin/Globulin Ratio Urine Color Yellow Urine Clarity Slightly Urine pH 8.5 Ur Specific [place] 1.015 Urine Protein Negative Urine Glucose (UA) Negative Urine Ketones Negative Urine Blood 2+ Urine Nitrite Negative Urine Bilirubin Negative Urine Urobilinogen 0.2 Ur Leukocyte Esterase Negative Urine Microscopic RBC 2-5 Urine Microscopic WBC 0-2 Ur Squamous Epith Cells 0-2 Amorphous Sediment 1+ Urine Bacteria 1+ Urine Yeast Trace Urine Opiates Screen Positive Ur Oxycodone Screen Negative Urine Methadone Screen Negative Ur Propoxyphene Screen Negative Ur Barbiturates Screen Negative U Tricyclic Antidepress Negative Ur Phencyclidine Scrn Negative Ur Amphetamine Screen Negative U Methamphetamines Scrn Negative U Benzodiazepines Scrn Negative Urine Cocaine Screen Negative U Cannabinoids Screen Negative 01/12/18 01/12/18 01/12/18 10:30 10:30 10:30 WBC RBC Hgb Hct MCV MCH MCHC RDW Coeff of [place] Plt Count Immature Gran % (Auto) Neut % (Auto) Lymph % (Auto) [place] % (Auto) Eos % (Auto) Baso % (Auto) Immature Gran # (Auto) Neut # (Auto) Lymph # (Auto) [place] # (Auto) Eos # (Auto) Baso # (Auto) ESR 2 Sodium 139 Potassium 4.1 Chloride 108 H Carbon Dioxide 24 Anion Gap 11.1 BUN 6 L Creatinine 0.65 Estimated GFR (MDRD) 104.00 BUN/Creatinine Ratio 9.23 Glucose 93 Lactic Acid 6.0 Calcium 9.3 Total Bilirubin 0.6 AST 11 L ALT 12 Alkaline Phosphatase 46 Total Protein 6.3 L Albumin 3.9 Globulin 2.4 Albumin/Globulin Ratio 1.63 Urine Color Urine Clarity Urine pH Ur Specific [place] Urine Protein Urine Glucose (UA) Urine Ketones Urine Blood Urine Nitrite Urine Bilirubin Urine Urobilinogen Ur Leukocyte Esterase Urine Microscopic RBC Urine Microscopic WBC Ur Squamous Epith Cells Amorphous Sediment Urine Bacteria Urine Yeast Urine Opiates Screen Ur Oxycodone Screen Urine Methadone Screen Ur Propoxyphene Screen Ur Barbiturates Screen U Tricyclic Antidepress Ur Phencyclidine Scrn Ur Amphetamine Screen U Methamphetamines Scrn U Benzodiazepines Scrn Urine Cocaine Screen U Cannabinoids Screen Orders Category Date Time Status BLOOD CULTURE (ED ONLY) Stat LAB 01/12/18 10:30 Completed CBC W/ AUTO DIFF Stat LAB 01/12/18 10:30 Completed CMP [COMPREHENSIVE METABOLIC PANEL] Stat LAB 01/12/18 10:30 Completed CULTURE WOUND [WOUND CULTURE] Stat LAB 01/12/18 11:30 Completed ESR Stat LAB 01/12/18 10:30 Completed LACTIC ACID Stat LAB 01/12/18 10:30 Completed UA [URINALYSIS C & S IF INDICATED] Stat LAB 01/12/18 10:00 Completed URINE CULTURE Stat LAB 01/12/18 10:00 Completed URINE DRUG SCREEN (RAPID FOR ED) [DRUG SCREEN, URINE, LAB 01/12/18 10:00 Completed RAPID] Stat Clindamycin HCl [Cleocin] MEDS 01/12/18 11:24 Discontinued 300 mg PO ONCE STA Ketorolac Tromethamine [Toradol] MEDS 01/12/18 10:47 Discontinued 30 mg IM ONCE STA Medications Discontinued Medications Generic Name Dose Route Start Last Admin Trade Name Henryq PRN Reason Stop Dose Admin Clindamycin HCl 300 mg 01/12/18 11:24 01/12/18 11:42 Cleocin PO 01/12/18 11:25 300 mg ONCE STA Administration Ketorolac Tromethamine 30 mg 01/12/18 10:47 01/12/18 11:15 Toradol IM 01/12/18 10:48 30 mg ONCE STA Administration Vital Signs: Temp Pulse Resp BP Pulse Ox 01/12/18 09:38 97.8 F 88 16 126/87 98 Departure - Departure Time of Disposition: 11:55 Disposition: HOME SELF-CARE Discharge Problem: Cellulitis and abscess of left lower extremity Instructions: Cellulitis (ED), Abscess (ED) Condition: Poor Pt referred to PMD for follow-up: Yes (See PCP in 2-3 days/ return here as needed) IPMP verified?: No Additional Instructions: Instructed patient on wound care Start on antibiotics as directed Apply warm moist heat periodically Culture obtained and submitted to lab/once results in will call result If condition worsens or area of lesion with more drainage may need to return for I&D of site Allergies/Adverse Reactions: Allergies codeine Adverse Reaction (Verified 01/14/18 21:39) Itching Home Medications: Ambulatory Orders Bupropion HCl [Bupropion Xl] 300 mg PO DAILY 09/13/15 Clonazepam [Klonopin] 0.5 mg PO DAILY 09/13/15 Diclofenac Sodium [Voltaren 1% Gel] 2 gm TP DAILY PRN 12/04/17 Methylprednisolone [Medrol Dosepak] 4 mg PO DIRECTED 01/12/18 Hydrocodone/Acetaminophen [[place] 5-325 Tablet] 1 each PO Q6HR PRN 01/14/18 Rifampin 600 mg PO DAILY #7 capsule 01/14/18 Sulfamethoxazole/Trimethoprim [Bactrim Ds 800/160 mg] 1 tab PO Q12HR 01/14/18 Sumatriptan Succinate [Imitrex] 25 mg PO DIRECTED PRN 01/14/18 Disposition Discussed With: Patient
[2018-01-12] MEDS ORDERED: TORADOL IM STA (10:47)
[2018-01-12] MEDS ORDERED: CLEOCIN PO STA (11:24)
== END 2018-01-12 11:56 | disposition home or self-care (01) ==
LOC: ED 09:36
DX: L03.116 Cellulitis of left lower limb (principal); L02.416 Cutaneous abscess of left lower limb; F17.210 Nicotine dependence, cigarettes, uncomplicated
CPT/HCPCS: 36415; 80053; 80306; 81001; 83605; 85025; 85651; 87040; 87070; 87086; 87186; 96372; 99283

== ENCOUNTER 2018-01-14 21:28 | Emergency (ER) ==
[2018-01-14 21:39] VITALS: BP 135/81; TEMP 97.7; BMI 20.2
[2018-01-14] MEDS ORDERED: LIDOCAINE HCL 1% SDV IM STA (23:00)
[2018-01-14] MEDS ORDERED: ROCEPHIN IM STA (23:00)
--- NOTE | 2018-01-14 23:11 | ED.PDOC ---
General ED Provider: Dr. LIDIA RUIZ Chief Complaint: Bite Stated Complaint: Patient was in ER 2 days ago for the left upper thigh abscess , it was drained and was started her on the antibiotics, she was not feeling good, so she went to ER in [place], was started on the Bcatrim, today she is been feeling more weak, confused. Time Seen by Physician: 23:09 Mode of Arrival: Walk-In Information Source: Patient Primary Care Provider: TIFFANIE RICH Nursing and Triage Documentation Reviewed and Agree: Yes Does patient meet sepsis criteria?: No If yes, has appropriate treatment been initiated?: No System Inflammatory Response Syndrome: Not Applicable Sepsis Protocol: For patient's 13 years and over: Temp is 96.8 and below OR 101 and greater Pulse >90 BPM Resp >20/minute Acutely Altered Mental Status Are patient's symptoms suggestive of a new infection, such as: -Pneumonia -Skin, Soft Tissue -Endocarditis -UTI -Bone, Joint Infection -Implantable Device -Acute Abdominal Infection -Wound Infection -Meningitis -Blood Stream Catheter Infection -Unknown Skin Complaint Exam - Skin/Soft Tissue Complaint/Exam Symptoms Are: Still present Timing: Constant Initial Severity: Moderate Current Severity: Moderate Character: Reports: Redness, Swelling, Raised, Painful Aggravating: Reports: None Alleviating: Reports: None Associated Signs and Symptoms: Reports: Drainage, Bruising, Tenderness Related Surgical History: Reports: None Recent Exposure to Others w/Similar Symptoms: No Skin Findings: Present: Erythema, Induration. Absent: Fluctuant mass Joint Tenderness Present: No Differential Diagnoses: Abscess, Cellulitis Review of Systems - Review Of Systems Constitutional: Reports: No symptoms Eyes: Reports: No symptoms Ears, Nose, Mouth, Throat: Reports: No symptoms Respiratory: Reports: No symptoms Cardiac: Reports: No symptoms GI: Reports: No symptoms : Reports: No symptoms Musculoskeletal: Reports: No symptoms Skin: Reports: No symptoms Neurological: Reports: No symptoms Endocrine: Reports: No symptoms Hematologic/Lymphatic: Reports: No symptoms All Other Systems: Reviewed and Negative Past Medical History - Past Medical History Previously Healthy: Yes Endocrine: Reports: None Cardiovascular: Reports: None Respiratory: Reports: None Hematological: Reports: None Gastrointestinal: Reports: None Genitourinary: Reports: None Neuro/Psych: Reports: Migraine Musculoskeletal: Reports: Arthritis, Back Pain, Joint Pain Cancer: Reports: None Last Menstrual Period: YESTERDAY - Surgical History General Surgical History: Reports: Unknown - Family History Family History: Reports: Unknown - Social History Smoking Status: Current every day smoker, Light tobacco smoker Smoking Cessation Counseling Time: > 3 min - 10 min Hx Substance Use: No Alcohol Screening: None - Immunizations Tetanus Shot up to Date: Yes Physical Exam - Physical Exam Appearance: Well-appearing Ill-appearing: Mild Eyes: GIO, EOMI ENT: Ears normal, Nose normal, Oropharynx normal Respiratory: Airway patent, Breath sounds clear, Breath sounds equal, Respirations nonlabored Cardiovascular: RRR, Pulses normal, No rub, No murmur GI/: Soft, Nontender, No masses, Bowel sounds normal, No Organomegaly Musculoskeletal: Normal strength, ROM intact, No edema, No calf tenderness Skin: Warm (left upper thigh, 4/4 cm red raised area, with center ulcer.), Dry, Normal color Neurological: Sensation intact, Motor intact, Reflexes intact, Cranial nerves intact, Alert, Oriented Psychiatric: Affect appropriate, Mood appropriate Critical Care Note - Critical Care Note Total Time (mins): 30 Course - Course Hematology/Chemistry: 01/14/18 22:06 01/14/18 22:06 Orders, Labs, Meds: Lab Review 01/14/18 01/14/18 01/14/18 10:30 22:06 22:06 WBC 8.84 RBC 3.83 L Hgb 12.6 Hct 36.5 L MCV 95.3 MCH 32.9 H MCHC 34.5 RDW Coeff of [place] 12.5 Plt Count 214 Immature Gran % (Auto) 0.2 Neut % (Auto) 52.8 Lymph % (Auto) 34.0 [place] % (Auto) 7.2 Eos % (Auto) 5.5 Baso % (Auto) 0.3 Immature Gran # (Auto) 0.0 Neut # (Auto) 4.7 Lymph # (Auto) 3.0 [place] # (Auto) 0.6 Eos # (Auto) 0.5 Baso # (Auto) 0.0 Sodium 139 Potassium 3.9 Chloride 107 Carbon Dioxide 24 Anion Gap 11.9 BUN 8 Creatinine 0.78 Estimated GFR (MDRD) 85.00 BUN/Creatinine Ratio 10.25 Glucose 94 Calcium 9.7 Total Bilirubin 0.2 AST 13 L ALT 9 L Alkaline Phosphatase 63 Total Protein 6.6 Albumin 3.5 Globulin 3.1 Albumin/Globulin Ratio 1.13 Urine Color Yellow Urine Clarity Clear Urine pH 6.5 Ur Specific [place] 1.025 Urine Protein Negative Urine Glucose (UA) Negative Urine Ketones Negative Urine Blood 2+ Urine Nitrite Negative Urine Bilirubin 2+ Urine Urobilinogen 0.2 Ur Leukocyte Esterase Negative Urine Microscopic RBC 0-2 Urine Microscopic WBC 0-2 Ur Squamous Epith Cells 0-2 Urine Bacteria 1+ Urine Opiates Screen Ur Oxycodone Screen Urine Methadone Screen Ur Propoxyphene Screen Ur Barbiturates Screen U Tricyclic Antidepress Ur Phencyclidine Scrn Ur Amphetamine Screen U Methamphetamines Scrn U Benzodiazepines Scrn Urine Cocaine Screen U Cannabinoids Screen 01/14/18 22:28 WBC RBC Hgb Hct MCV MCH MCHC RDW Coeff of [place] Plt Count Immature Gran % (Auto) Neut % (Auto) Lymph % (Auto) [place] % (Auto) Eos % (Auto) Baso % (Auto) Immature Gran # (Auto) Neut # (Auto) Lymph # (Auto) [place] # (Auto) Eos # (Auto) Baso # (Auto) Sodium Potassium Chloride Carbon Dioxide Anion Gap BUN Creatinine Estimated GFR (MDRD) BUN/Creatinine Ratio Glucose Calcium Total Bilirubin AST ALT Alkaline Phosphatase Total Protein Albumin Globulin Albumin/Globulin Ratio Urine Color Urine Clarity Urine pH Ur Specific [place] Urine Protein Urine Glucose (UA) Urine Ketones Urine Blood Urine Nitrite Urine Bilirubin Urine Urobilinogen Ur Leukocyte Esterase Urine Microscopic RBC Urine Microscopic WBC Ur Squamous Epith Cells Urine Bacteria Urine Opiates Screen Negative Ur Oxycodone Screen Positive Urine Methadone Screen Negative Ur Propoxyphene Screen Negative Ur Barbiturates Screen Negative U Tricyclic Antidepress Negative Ur Phencyclidine Scrn Negative Ur Amphetamine Screen Negative U Methamphetamines Scrn Negative U Benzodiazepines Scrn Positive Urine Cocaine Screen Negative U Cannabinoids Screen Negative Orders Category Date Time Status BLOOD CULTURE Stat LAB 01/14/18 22:06 Received CBC W/ AUTO DIFF Stat LAB 01/14/18 22:06 Completed COMPREHENSIVE METABOLIC PANEL Stat LAB 01/14/18 22:06 Completed URINALYSIS C & S IF INDICATED Stat LAB 01/14/18 10:30 Completed URINE CULTURE Stat LAB 01/14/18 10:30 Received URINE DRUG SCREEN (RAPID FOR ED) [DRUG SCREEN, URINE, LAB 01/14/18 22:28 Completed RAPID] Stat Ceftriaxone Sodium [Rocephin] MEDS 01/14/18 23:00 Discontinued 1 gm IM ONCE STA Lidocaine HCl/Pf [Lidocaine HCl 1% Sdv] MEDS 01/14/18 23:00 Discontinued 2.1 ml IM ONCE STA Medications Discontinued Medications Generic Name Dose Route Start Last Admin Trade Name M[place] PRN Reason Stop Dose Admin Ceftriaxone Sodium 1 gm 01/14/18 23:00 Rocephin IM 01/14/18 23:01 ONCE STA Lidocaine HCl 2.1 ml 01/14/18 23:00 Lidocaine Hcl 1% Sdv IM 01/14/18 23:01 ONCE STA Vital Signs: Temp Pulse Resp BP Pulse Ox 01/14/18 21:29 97.7 F 73 20 135/81 97 Departure - Departure Time of Disposition: 23:14 Disposition: HOME SELF-CARE Discharge Problem: Thigh abscess Insect bite Qualifiers: Encounter type: subsequent encounter Qualified Code(s): W57.XXXD - Bitten or stung by nonvenomous insect and other nonvenomous arthropods, subsequent encounter Instructions: Abscess (ED) Condition: Stable Pt referred to PMD for follow-up: Yes IPMP verified?: No Additional Instructions: Take medication with food Probiotics and yogurt. f/u with PMD If not better in 4-5 days may need wound care Prescriptions: Rifampin 600 mg PO DAILY #7 capsule Allergies/Adverse Reactions: Allergies codeine Adverse Reaction (Verified 01/14/18 21:39) Itching Home Medications: Ambulatory Orders Bupropion HCl [Bupropion Xl] 300 mg PO DAILY 09/13/15 Clonazepam [Klonopin] 0.5 mg PO DAILY 09/13/15 Diclofenac Sodium [Voltaren 1% Gel] 2 gm TP DAILY PRN 12/04/17 Methylprednisolone [Medrol Dosepak] 4 mg PO DIRECTED 01/12/18 Hydrocodone/Acetaminophen [[place] 5-325 Tablet] 1 each PO Q6HR PRN 01/14/18 Rifampin 600 mg PO DAILY #7 capsule 01/14/18 Sulfamethoxazole/Trimethoprim [Bactrim Ds 800/160 mg] 1 tab PO Q12HR 01/14/18 Sumatriptan Succinate [Imitrex] 25 mg PO DIRECTED PRN 01/14/18 Disposition Discussed With: Patient, Family
== END 2018-01-14 23:59 | disposition home or self-care (01) ==
LOC: ED 21:28
DX: L02.416 Cutaneous abscess of left lower limb (principal); F17.210 Nicotine dependence, cigarettes, uncomplicated; W57.XXXD Bitten or stung by nonvenomous insect and other nonvenomous arthropods, subsequent encounter
CPT/HCPCS: 36415; 80053; 80306; 81001; 85025; 87040; 87086; 96372; 99283